=== PATIENT | male | born 1995 | race Caucasian/White ===

== ENCOUNTER 2017-12-09 13:17 | Outpatient (CLI) | payer BC ==
--- NOTE | 2017-12-09 17:18 | ULT ---
SCROTAL ULTRASOUND: 12/09/17 INDICATION: Followup lesion within the left testicle. COMPARISON: Scrotal ultrasound dated 11/25/16. TECHNIQUE: Lord scale, color doppler, vascular duplex with spectral analysis performed of the scrotum. FINDINGS: The right testicle measured 4.3 x 3.6 x 2.3 cm. No intratesticular mass is demonstrated. There is a v marilee tiny right sided hydrocele. There is normal vascular flow to the right testicle. Small right epid idymal head cyst is again noted measuring 5 mm. The left testicle measures 4.3 x 2.9 x 2.1 cm. Slight hypoechogenicity seen within the raphae of the mediastinum is no longer demonstrated. This is likely artifactual on the prior exam. There is a 1 cm left epididymal head cyst in place. There is normal vascular flow to the left testicle. IMPRESSION: 1. Subtle hypodensity within the region of the mediastinum of the left testicle likely artifactu al in nature related to exam technique. No intratesticular mass or torsion is demonstrated. 2. Small bilateral epididymal head cysts. POS: [facility]
== END 2017-12-09 13:18 | disposition home or self-care (01) ==
LOC: BICULT 13:17
PROVIDERS: ATTEND Urology
DX: N50.82 Scrotal pain (principal); N35.919 Unspecified urethral stricture, male, unspecified site; N50.3 Cyst of epididymis
CPT/HCPCS: 36415; 76870; 80048; 81003; 87086; 93976

== ENCOUNTER 2018-03-31 20:16 | Inpatient (IN) | payer BC ==
[2018-03-31] MEDS ORDERED: Metoclopramide HCl 10 MG/2 ML VIAL ONE (21:54)
[2018-03-31] MEDS ORDERED: diphenhydrAMINE 50 MG/ML VIAL ONE (21:56)
[2018-03-31 22:17] LABS: #Basophils 0.1 thou/uL (0.0-0.2); #Eosinphils 0.1 thou/uL (0.0-0.7); #Lymphocytes 1.3 thou/uL (1.20-3.40); #Monocytes 0.5 thou/uL (0.11-0.59); #Neutrophils 4.1 thou/uL (1.40-6.50); %Basophils 1.4 % (0.0-1.0); %Eosinophils 1.5 % (0.0-10.0); %Lymphocytes 20.9 % (21.0-51.0); %Monocytes 8.9 % (0.0-10.0); %Neutrophils 67.3 % (42.0-75.0); Hemoglobin 15.1 g/dL (14.0-18.0); Mean Corpuscular HGB CONC 34.7 g/dL (32.0-36.0); Mean Corpuscular Hemoglobin 32.4 pg (27.0-31.0); Mean Corpuscular Volume 93.4 fL (78.0-98.0); Mean Platelet Volume 8.1 fL (7.4-10.4); Platelet Count 217 thou/uL (130-400); RBC Distribution Width 11.8 % (11.5-14.5); Red Blood Cell (RBC) Count 4.67 mill/uL (4.70-6.10); White Blood Cell (WBC) Count 6.1 thou/uL (4.8-10.8)
[2018-03-31 22:38] LABS: ALT (SGPT) 43 U/L (8-55); AST (SGOT) 16 U/L (5-34); Albumin 4.4 g/dL (3.5-5.0); Alkaline Phosphatase 82 U/L (40-150); Anion Gap 15 mmol/L (10-20); BUN (Urea Nitrogen) 12 mg/dL (8.9-20.6); Bilirubin, Total 0.5 mg/dL (0.2-1.2); Calc. Creatinine Clearance 0 mL/min (70-130); Calcium 9.7 mg/dL (7.8-10.44); Carbon Dioxide 24 mmol/L (22-29); Chloride 104 mmol/L (98-107); Estimated GFR-MDRD 84; Globulin 2.7 g/dL (2.4-3.5); Glucose 88 mg/dL (70-105); Potassium 3.6 mmol/L (3.5-5.1); Protein, Total 7.1 g/dL (6.0-8.3); Sodium 139 mmol/L (136-145)
[2018-03-31] MEDS ORDERED: Lidocaine 1% (PF) 30 ML VIAL ONE (22:44)
--- NOTE | 2018-03-31 22:50 | CT ---
CT OF THE HEAD WITHOUT CONTRAST: 03/31/18 COMPARISON: None. HISTORY: Headache for three days. TECHNIQUE: Axial CT imaging at 5 mm intervals from vertex through skull base without contrast. FINDINGS: The imaged paranasal sinuses/mastoid air cells are well aerated. There is no displaced calvarial frac ture. There is no intracranial hemorrhage, midline shift, mass effect or ventricular enlargement. IMPRESSION: No acute findings. POS: [facility]
[2018-03-31] MEDS ORDERED: Dexamethasone 4 mg/ml Vial ONE (22:56)
[2018-03-31] MEDS ORDERED: cefTRIAXone\\ROCEPHIN 2 GM VIAL ONE (22:56)
[2018-03-31] MEDS ORDERED: Lorazepam 2 MG/ML VIAL ONE (22:56)
[2018-04-01] MEDS ORDERED: cefTRIAXone\\ROCEPHIN 2 GM VIAL ONE (00:09)
[2018-04-01] MEDS ORDERED: Acyclovir Sodium 800 MG in Sodium Chloride 0.9% 250 ML 250 ML IVPB SCH ×2 (00:30→06:00)
[2018-04-01 00:40] LABS: CSF Source CSF; Clarity Clear (Clear); RBC Count - Manual 2 /cumm (None Seen); RBC Count - Manual 38 /cumm (None Seen); Tube # 1; Tube # 4; WBC/NonHematics Count - Manual 233 /cumm (0-5); WBC/NonHematics Count - Manual 405 /cumm (0-5)
[2018-04-01 00:43] LABS: CSF, Glucose 51 mg/dl (40-70); CSF, Protein 162 mg/dL (15-40)
[2018-04-01 00:58] LABS: Cell Count Non Hematic 2 %; Lymphocytes 97 %; Segmented Neutrophils 1 %
[2018-04-01 00:59] LABS: Cell Count Non Hematic 2 %; Lymphocytes 97 %; Segmented Neutrophils 1 %
[2018-04-01 01:34] LABS: Color Of CSF Supernatant COLORLESS (Colorless); Tube # 2; Unspun CSF Color COLORLESS (Colorless)
[2018-04-01 02:15] LABS: Lactic Acid 1.1 mmol/L (0.5-2.2)
[2018-04-01] MEDS ORDERED: Vancomycin HCl 1 GM in Premix Bag 1 BAG IVPB SCH (02:16)
[2018-04-01] MEDS ORDERED: Ondansetron PF 4 MG/2 ML Vial IVP PRN (02:17)
--- NOTE | 2018-04-01 04:02 | HP ---
PRIMARY CARE DOCTOR: No primary care doctor. CODE STATUS: Full code. TIME OF EVALUATION: 2:00 a.m. CHIEF COMPLAINT: Severe headache. HISTORY OF PRESENT ILLNESS: This is a 23-year-old male patient with no significant past medical history. He came to the hospital after having severe headache, the headache has been present since Friday, associated with photophobia and also reported some neck stiffness. The patient had a trip to [place] a week ago and actually has been doing well until the past Friday, he was diagnosed with shingles that was in the left shoulder. The patient reported the headache was very severe, universal, 10/10. No clear triggers or alleviating factors. REVIEW OF SYSTEMS: CONSTITUTIONAL: The patient had no fever, chills, or generalized weakness. RESPIRATORY: No cough, sputum production, or shortness of breath. CARDIOVASCULAR: No chest pain or palpitations. GASTROINTESTINAL: No nausea, vomiting, diarrhea, or abdominal pain. DINING ROOM HELPER: Severe headache, universal, and throbbing headache. No dizziness or feeling lightheaded. The patient also have neck stiffness and photophobia. GENITOURINARY: No burning on urination. EXTREMITIES: No leg swelling. SKIN: The patient has vesicular lesions on the left upper shoulder. All other systems were reviewed and negative except for the findings mentioned above. PAST MEDICAL HISTORY: Negative. SOCIAL HISTORY: The patient drinks socially every week. No drug use. Usually smokes cigar. Lives at home. PSYCH HISTORY: No previous psych history. PAST SURGICAL HISTORY: Back surgery x2 reconstruction in 2015. ALLERGIES: TO PENICILLIN. REPORTED MEDICATIONS: None. PHYSICAL EXAMINATION: VITAL SIGNS: On presentation, blood pressure 143/88 with heart rate 100, respiratory rate was 22, temperature 98.9, pain was 10/10, oxygen saturation was 98 on room air. GENERAL APPEARANCE: The patient is alert, oriented, in mild distress due to the headache and the photophobia. HEENT: Eyes; normal conjunctivae. Moist oral mucosa. Anicteric. No JVD. RESPIRATORY: Bilateral air entry. No rales. No wheezes. Symmetric expansion. CARDIOVASCULAR: Normal rate, regular rhythm. No murmurs, no gallops. No edema. ABDOMEN: Soft. Normal bowel sounds. MUSCULOSKELETAL: Baseline range of motion and strength. No tenderness. SKIN: . Findings are positive for papular and vesicular lesions in the left shoulder and the back part. VASCULAR: Peripheral pulses are present. Capillary refill seems to be intact. NEURO: The patient has neck stiffness and tenderness. No evidence of any other new focal weakness. Baseline speech. Cranial nerves seems to be intact. PSYCHIATRIC: The patient is in good mood. No anxiety. Optimal judgment. IMAGING STUDIES: Brain CT was done, the patient has no acute findings. LABORATORY DATA: Labs were reviewed. The patient has white count 6.1, hemoglobin 15.1, MCV 93.4, platelet count 217. Chemistry; sodium 139, potassium 3.6, chloride 104, carbon dioxide 24, anion gap 15, BUN 12, creatinine 1.07, GFR 84, glucose 88. Lactic acid 2.4 that came down to 1.1. Calcium 9.7. Bilirubin 0.5, AST 16, ALT 43, alkaline phosphatase 82. Serum total protein 7.1, albumin 4.4, globulin 2.7, albumin to globulin ratio is 1.6. CSF was done. The patient has white count of 233 with RBC 38, neutrophils 1, lymphocytes 97. CSF; total protein 162, glucose 51. ASSESSMENT AND PLAN: The patient will be placed in the hospital with the following medical problems: 1. Acute meningitis, most likely viral, this could be related to herpes simplex virus from the shingles. The patient has been started on acyclovir, also antibiotics that can be stepped down as soon as the results from cultures are back. We can step down on antibiotics. 2. Lactic acidosis initially 2.4, came down to 1.1, likely secondary to infection. 3. DVT prophylaxis. 4. Risk assessment, the patient is at high risk due to new neurological findings and acute meningitis. Job ID: [id number]
[2018-04-01 04:10] LABS: #Basophils 0.1 thou/uL (0.0-0.2); #Lymphocytes 0.7 thou/uL (1.20-3.40); #Monocytes 0.1 thou/uL (0.11-0.59); #Neutrophils 5.1 thou/uL (1.40-6.50); %Basophils 0.9 % (0.0-1.0); %Eosinophils 0.6 % (0.0-10.0); %Lymphocytes 11.4 % (21.0-51.0); %Monocytes 2.1 % (0.0-10.0); %Neutrophils 85.1 % (42.0-75.0); Hemoglobin 15.1 g/dL (14.0-18.0); Mean Corpuscular HGB CONC 34.1 g/dL (32.0-36.0); Mean Corpuscular Hemoglobin 31.9 pg (27.0-31.0); Mean Corpuscular Volume 93.4 fL (78.0-98.0); Mean Platelet Volume 8.1 fL (7.4-10.4); Platelet Count 202 thou/uL (130-400); RBC Distribution Width 11.7 % (11.5-14.5); Red Blood Cell (RBC) Count 4.73 mill/uL (4.70-6.10)
[2018-04-01 04:29] LABS: Anion Gap 13 mmol/L (10-20); BUN (Urea Nitrogen) 11 mg/dL (8.9-20.6); Calc. Creatinine Clearance 163 mL/min (70-130); Calcium 9.2 mg/dL (7.8-10.44); Carbon Dioxide 20 mmol/L (22-29); Chloride 108 mmol/L (98-107); Estimated GFR-MDRD Greater than 90; Glucose 145 mg/dL (70-105); Potassium 4.2 mmol/L (3.5-5.1); Sodium 137 mmol/L (136-145)
[2018-04-01 05:39] VITALS: BMI 32.8
[2018-04-01] MEDS: Vancomycin HCl 1.25 GM in Sodium Chloride 0.9% 250 ML 250 ML IVPB SCH ×2 (06:35→19:18)
[2018-04-01] MEDS: Acyclovir Sodium 800 MG in Sodium Chloride 0.9% 250 ML 250 ML IVPB SCH ×2 (09:07→16:29)
[2018-04-01] MEDS: Acetaminophen 325 MG TAB PO PRN ×3 (09:14→20:05)
[2018-04-01] MEDS ORDERED: cefTRIAXone\\ROCEPHIN 2 GM in Sodium Chloride 0.9% 100 ML IVPB SCH (11:00)
--- NOTE | 2018-04-01 12:39 | PDOC.PN ---
- Subjective Encounter Start Date: 04/01/18 Encounter Start Time: 11:00 Subjective: still has headache but better -: photophobia is better -: no nausea, is amb - Objective Resuscitation Status - Order Detail: 04/01/18 02:17 Resuscitation Status Routine Resuscitation Status: FULL: Full Resuscitation MAR Reviewed: Yes Vital Signs & Weight: Vital Signs (12 hours) Temp Pulse Resp BP BP Pulse Ox 04/01/18 11:36 98.3 F 102 H 18 105/66 96 04/01/18 08:07 98.5 F 85 14 112/73 96 04/01/18 05:49 98.1 F 89 20 125/79 97 04/01/18 05:39 98.1 F 89 20 125/79 97 04/01/18 05:24 98.1 F 89 18 125/79 97 Weight Weight 228 lb 9 oz Result Diagrams: 04/01/18 03:45 04/01/18 03:45 Phys Exam - Physical Examination HEENT: PERRLA, moist MMs Neck: no JVD kernig's sign+ve Respiratory: no wheezing, no rales Cardiovascular: RRR, no significant murmur Gastrointestinal: soft, non-tender, positive bowel sounds Musculoskeletal: no edema, pulses present Neurological: non-focal, moves all 4 limbs Psychiatric: normal affect, A&O x 3 Dx/Plan (1) Meningitis Code(s): G03.9 - MENINGITIS, UNSPECIFIED Status: Acute Comment: likely viral (2) Herpes zoster Code(s): B02.9 - ZOSTER WITHOUT COMPLICATIONS Status: Acute Comment: left shoulder with likely meningitis - Plan is on acyclovir -: off antibiotics -: d/w -: switch to inpt -: to amb as tolerated * . Review of Systems - Medications/Allergies Allergies/Adverse Reactions: Allergies Allergy/AdvReac Type Severity Reaction Status Date / Time cefadroxil [Cefadroxil] Allergy Verified 04/01/18 05:49 codeine [Codeine] Allergy Verified 04/01/18 05:49 hydrocodone [Hydrocodone] Allergy Verified 04/01/18 05:49 Penicillins Allergy Verified 04/01/18 05:37 Medications: Current Medications Acetaminophen (Tylenol) 650 mg PO Q4H PRN PRN Reason: Headache/Fever/Mild Pain (1-3) Last Admin: 04/01/18 09:14 Dose: 650 mg Ceftriaxone Sodium 2 gm/ (Sodium Chloride) 100 mls @ 200 mls/hr IVPB 1100,2300 COUNTS INCLUDE 234 BEDS AT THE [facility] Last Admin: 04/01/18 12:00 Dose: 100 mls Vancomycin HCl 1.25 gm/ Sodium (Chloride) 250 mls @ 166.667 mls/hr IVPB Q8HR COUNTS INCLUDE 234 BEDS AT THE [facility] Last Admin: 04/01/18 06:35 Dose: 250 mls Acyclovir Sodium 800 mg/ (Sodium Chloride) 266 mls @ 266 mls/hr IVPB 0100,0900, 1700 COUNTS INCLUDE 234 BEDS AT THE [facility] Last Admin: 04/01/18 09:07 Dose: 266 mls Miscellaneous Medication (Pharmacy To Dose) 1 each IVPB ONE PRN PRN Reason: DOSING Stop: 05/01/18 02:36 Ondansetron HCl (Zofran) 4 mg IVP Q6H PRN PRN Reason: Nausea/Vomiting Sodium Chloride (Flush - Normal Saline) 10 ml IVF Q12HR COUNTS INCLUDE 234 BEDS AT THE [facility] Sodium Chloride (Flush - Normal Saline) 10 ml IVF PRN PRN PRN Reason: Saline Flush
[2018-04-01 13:07] LABS: HIV (1/2) Antibody/Antigen Non-Reactive (NonReactive); HIV 1/2 INDEX 0.09 S/CO (<1.00)
--- NOTE | 2018-04-01 15:27 | CON ---
DATE OF CONSULTATION: 04/01/2018 REASON FOR CONSULTATION: Possible meningitis. 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 On the way back, developed headaches, photophobia, some neck stiffness, and developed shingles in the left posterior shoulder. Still with headaches and therefore he was admitted after a CSF evaluation, which was abnormal. He is right now seen in bed. He appears comfortable, in no distress, still with moderate headache. No visual symptoms, sore throat, odynophagia, dysphagia, or dental pain. No neck pain. No cough, sputum production, or chest pain. No abdominal pain or diarrhea. No genitourinary symptoms. No joint symptoms. No skin disorder outside the herpes zoster in the left posterior chest. MEDICAL AND SURGICAL HISTORY: The patient has had a congenital bladder abnormality, which has required reconstructive surgery. He also had a urethral repair. SOCIAL HISTORY: Drinks occasionally. Works in an oil field. . Smokes cigars intermittently. ALLERGIES: PENICILLIN WITH RASH. PHYSICAL EXAMINATION: VITAL SIGNS: Have been normal except for mild tachycardia. SKIN: Exam shows either herpes simplex or herpes zoster eruption in the left upper back region. LYMPH: No lymphadenopathy. EYES: Ocular movements conjugate. MOUTH: Oral cavity normal. NECK: Supple. LUNGS: Symmetric. Clear breath sounds. HEART: S1, S2. Regular rate. No S3 or S4. ABDOMEN: Soft. Not distended or tender. No ascites. No bladder distention. No organomegaly. No joint inflammatory activity. NEUROLOGIC: Nonfocal including cognitive function. LABORATORY DATA: White cell count is 6.1, hemoglobin is 15, platelets 217 with normal differential except for some mild lymphocytopenia. Chemistry was normal on admission. CSF with 405 wbc's with 97% lymphocytes, protein 162. ASSESSMENT: 1. Previous urological abnormalities, which seemed to have been repaired successfully. 2. Vesicular outbreak in the left back skin region, which could be either secondary to herpes zoster or to herpes simplex mimicking zosteriform outbreak. This is associated with aseptic meningitis. DISCUSSION: Most likely, the patient has either herpes simplex or herpes zoster outbreak in the back with associated aseptic meningitis. Submit VZV and HSV DNA PCR from CSF. Would help also to do a scraping and swab for VZV and HSV PCR from the back lesions. The reason is that if it is herpes simplex virus, he may experience recrudescence in the future. If it is varicella zoster, that would be less likely. Switch him to IV acyclovir until he is asymptomatic or improved and then transition back to Valtrex for completion of therapy in the outpatient setting. Job ID: [id number]
[2018-04-01] MEDS ORDERED: hydrOXYzine 25 MG TAB PO PRN (20:54)
[2018-04-02] MEDS: Acyclovir Sodium 800 MG in Sodium Chloride 0.9% 250 ML 250 ML IVPB SCH ×3 (00:49→17:37)
[2018-04-02] MEDS: Acetaminophen 325 MG TAB PO PRN ×3 (09:28→21:14)
--- NOTE | 2018-04-02 12:52 | PDOC.PN ---
- Subjective Encounter Start Date: 04/02/18 Encounter Start Time: 11:15 Subjective: has headache, no nausea -: photophobia is better -: no c/o any weakness in extremities - Objective Resuscitation Status - Order Detail: 04/01/18 02:17 Resuscitation Status Routine Resuscitation Status: FULL: Full Resuscitation MAR Reviewed: Yes Vital Signs & Weight: Vital Signs (12 hours) Temp Pulse Resp BP Pulse Ox 04/02/18 12:00 99.0 F 82 16 101/60 98 04/02/18 03:25 98.3 F 84 18 115/74 97 Weight Weight 228 lb 9 oz I&O: 04/01/18 04/02/18 04/03/18 06:59 06:59 06:59 Intake Total 2860 Balance 2860 Result Diagrams: 04/01/18 03:45 04/01/18 03:45 Phys Exam - Physical Examination HEENT: PERRLA, moist MMs Neck: no JVD kernig's sign+ Respiratory: no wheezing, no rales Cardiovascular: RRR, no significant murmur Gastrointestinal: soft, non-tender, positive bowel sounds Musculoskeletal: no edema, pulses present Neurological: non-focal, moves all 4 limbs Psychiatric: normal affect, A&O x 3 Dx/Plan (1) Meningitis Code(s): G03.9 - MENINGITIS, UNSPECIFIED Status: Acute Comment: likely viral (2) Herpes zoster Code(s): B02.9 - ZOSTER WITHOUT COMPLICATIONS Status: Acute Comment: left shoulder with likely meningitis - Plan is on acyclovir iv -: will switch to valcyclovir in am -: dc plan in am home -: viral studies are pending -: neurologically stable and improving * . Review of Systems - Medications/Allergies Allergies/Adverse Reactions: Allergies Allergy/AdvReac Type Severity Reaction Status Date / Time cefadroxil [Cefadroxil] Allergy Verified 04/01/18 05:49 codeine [Codeine] Allergy Verified 04/01/18 05:49 hydrocodone [Hydrocodone] Allergy Verified 04/01/18 05:49 Penicillins Allergy Verified 04/01/18 05:37 Medications: Current Medications Acetaminophen (Tylenol) 650 mg PO Q4H PRN PRN Reason: Headache/Fever/Mild Pain (1-3) Last Admin: 04/02/18 09:28 Dose: 650 mg Hydroxyzine HCl (Atarax) 25 mg PO Q8H PRN PRN Reason: Itching Last Admin: 04/01/18 21:17 Dose: 25 mg Acyclovir Sodium 800 mg/ (Sodium Chloride) 266 mls @ 266 mls/hr IVPB 0100,0900, 1700 [facility] Last Admin: 04/02/18 09:29 Dose: 266 mls Miscellaneous Medication (Pharmacy To Dose) 1 each IVPB ONE PRN PRN Reason: DOSING Stop: 05/01/18 02:36 Ondansetron HCl (Zofran) 4 mg IVP Q6H PRN PRN Reason: Nausea/Vomiting Sodium Chloride (Flush - Normal Saline) 10 ml IVF Q12HR [facility] Last Admin: 04/02/18 09:29 Dose: 10 ml Sodium Chloride (Flush - Normal Saline) 10 ml IVF PRN PRN PRN Reason: Saline Flush
[2018-04-03] MEDS: Acyclovir Sodium 800 MG in Sodium Chloride 0.9% 250 ML 250 ML IVPB SCH ×2 (01:06→08:26)
[2018-04-03] MEDS: Acetaminophen 325 MG TAB PO PRN (08:27)
[2018-04-03 12:35] VITALS: BP 120/84; TEMP 97.8
--- NOTE | 2018-04-03 13:09 | PDOC.PN ---
- Subjective Encounter Start Date: 04/03/18 Encounter Start Time: 07:00 Subjective: off and on headache, a lot better now -: amb in hallway, no nausea or weakness - Objective Resuscitation Status - Order Detail: 04/01/18 02:17 Resuscitation Status Routine Resuscitation Status: FULL: Full Resuscitation MAR Reviewed: Yes Vital Signs & Weight: Vital Signs (12 hours) Temp Pulse Resp BP Pulse Ox 04/03/18 12:00 97.8 F 75 20 120/84 04/03/18 08:00 97 04/03/18 07:36 98.4 F 77 18 111/70 97 04/03/18 01:12 98.1 F 69 18 105/63 96 Weight Weight 228 lb 9 oz I&O: 04/02/18 04/03/18 04/04/18 06:59 06:59 06:59 Intake Total 2860 2840 Balance 2860 2840 Result Diagrams: 04/01/18 03:45 04/01/18 03:45 Phys Exam - Physical Examination HEENT: PERRLA, moist MMs Neck: no JVD, supple Respiratory: no wheezing, no rales Cardiovascular: RRR, no significant murmur Gastrointestinal: soft, non-tender, positive bowel sounds Musculoskeletal: no edema, pulses present Neurological: non-focal, moves all 4 limbs Psychiatric: normal affect, A&O x 3 Dx/Plan (1) Meningitis Code(s): G03.9 - MENINGITIS, UNSPECIFIED Status: Acute Comment: likely viral (2) Herpes zoster Code(s): B02.9 - ZOSTER WITHOUT COMPLICATIONS Status: Acute Comment: left shoulder with likely meningitis - Plan hemo/neurostable -: d/w , to continue valcyclovir 1g tid x 9days -: dc pt home * .
--- NOTE | 2018-04-05 15:55 | DIS ---
DATE OF ADMISSION: 04/01/2018 DATE OF DISCHARGE: 04/03/2018 DISCHARGE DISPOSITION: To home. PRIMARY DISCHARGE DIAGNOSES: Viral meningitis, herpes zoster on the left shoulder. PROCEDURES DONE DURING HOSPITALIZATION: CT brain done on the day of admission showed no acute findings. CSF fluid culture showed no growth in 4 days. Initial Gram stain was negative as well. White count of 16, hemoglobin and hematocrit of 15 and 44, platelet count 202, with 85% neutrophils. BUN and creatinine are 11 and 1.0. Lactic acid was 2.4 on arrival. CSF tube #4 showed 405 WBCs, it was clear, 1% segments, 97% lymphocytes. Tube #2 showed glucose of 51 and total protein of 162. HIV 1 and 2 antigen and antibody were nonreactive. DISCHARGE MEDICATIONS: Valacyclovir 1 g p.o. three times daily for another 9 days. ALLERGIES: ALLERGIC TO CEFADROXIL, CODEINE, HYDROCODONE, PENICILLIN. INPATIENT CONSULT: Dr. Prieto for Infectious Disease. DISCHARGE PLAN: The patient to follow up with Dr. Prieto in 2 weeks. He also needs to follow up with his primary care physician in 1 week. BRIEF COURSE DURING HOSPITALIZATION: The patient initially came to ER with complaints of severe headache. He had also been on a trip to [place] a week earlier. The patient had developed shingles over the left shoulder. He had Kernig sign on arrival. In view of this, he has had lumbar puncture with CSF examination done. The CSF was suspicious for viral meningitis. He had taken three tablets of valacyclovir prior to arrival here. He was placed on broad-spectrum antibiotics initially along with acyclovir IV. The patient has responded well to above measures. His antibiotics were discontinued after 36 hours. He is ambulating and eating well. His headache is very minimal. He has been cleared by Dr. Prieto for discharge. He needs to continue valacyclovir for another 9 days. The patient's viral PCR and cultures are pending at the time of discharge. He has been advised to follow up with his primary care physician for complete results of the PCR and send out labs that are sent. He also needs to see Dr. Prieto in 2 weeks. Please see a [id number] documentation for the day of discharge on [employer]. Job ID: [id number]
== END 2018-04-03 12:39 | disposition home or self-care (01) | DRG 75 ==
LOC: ERS 20:16 → ERHOLD 04-01 00:14 → OBSVTOIN 04-01 00:14 → T4-A 04-01 05:27
PROVIDERS: ADMIT Hospitalist; ATTEND Hospitalist
DX: A87.9 Viral meningitis, unspecified (principal); E87.2 Acidosis; B02.9 Zoster without complications; Z98.890 Other specified postprocedural states; Z88.0 Allergy status to penicillin
CPT/HCPCS: 36415; 62270; 70450; 80048; 80053; 82945; 83605; 84157; 85025; 85060; 86788; 86789; 86794; 87070; 87205; 87255; 87389; 87529; 87798; 89051; 96361; 96365; 96367; 96368; 96375; J0696; J1100; J1200; J2001; J2060; J2765; J3370; J7050

== ENCOUNTER 2019-07-27 13:24 | Outpatient (CLI) | payer BC ==
--- NOTE | 2019-07-27 14:35 | ULT ---
ULTRASOUND SCROTUM AND TESTICLES DOPPLER DUPLEX: DATE: 07/27/2019 HISTORY: 24-year-old male with ICD-10: "N50.819, testicular pain" TECHNIQUE: Grayscale evaluation of intrascrotal contents. Color flow Doppler and spectral waveform analysis of t he testicles. FINDINGS: The bilateral testicles are normal in size, and have homogeneously normal echogenicity, and have symm etrical blood flow. The epididymal heads are bilaterally within normal limits in size. There are several small cysts at the right epididymal head. The largest on the right is 6 mm there is a left ep ididymal head cyst measuring 6 mm. There is no intratesticular mass or varicocele. There are tiny bilateral hydroceles. IMPRESSION: 1) Tiny bilateral epididymal cysts. 2.) Minimal bilateral hydroceles 3) otherwise negative.
== END 2019-07-27 13:25 | disposition home or self-care (01) ==
LOC: ULT 13:24
PROVIDERS: ATTEND Urology
DX: N50.819 Testicular pain, unspecified (principal); N43.3 Hydrocele, unspecified; N50.3 Cyst of epididymis
CPT/HCPCS: 76870; 81001; 87086; 93976

== ENCOUNTER 2019-08-10 10:36 | Outpatient (CLI) | payer BC ==
--- NOTE | 2019-08-10 14:48 | ULT ---
BILATERAL RENAL ULTRASOUND: Date: 08/10/2019 INDICATION: Right-sided flank pain. COMPARISON: Prior examination dated 08/14/[address] of the abdomen and pelvis dated 06/09/2015. FINDINGS: Right kidney measures 11.4 x 5.5 x 5.0 cm. Left kidney measures 12.2 x 5.8 x 6.3 cm. There is a 2.8 c m inferior left peripelvic cyst. Visualized bladder is unremarkable appearing. IMPRESSION: 1. No evidence of hydronephrosis. 2. Left inferior renal peripelvic cyst. POS: [facility]
== END 2019-08-10 10:37 | disposition home or self-care (01) ==
LOC: BICULT 10:36
PROVIDERS: ATTEND Urology
DX: M54.5 Low back pain (principal); N28.1 Cyst of kidney, acquired; Z87.442 Personal history of urinary calculi
CPT/HCPCS: 76770